=== PATIENT | male | born 1985 | race African-American/Black ===

== ENCOUNTER 2019-09-20 19:36 | Emergency (ER) | payer SELFPAY ==
[2019-09-20] MEDS ORDERED: ACETAMINOPHEN 500 MG TABLET (FP) PO ONE (19:47)
--- NOTE | 2019-09-20 19:47 | PDOC ---
Rapid Medical Evaluation Chief Complaint: Pain Time Seen by Provider: 09/20/19 19:45 Medical Evaluation: 09/20/19 19:45 I have performed a brief in-person evaluation of this patient. CC: left 5th toe pain s/p trauma to distal tip of toe on 09/18. Patient does not remember details as he was intoxicated at the time. PE: No focal findings. Orders: xray, ice, tylenol Patient will proceed to ED for further evaluation. Discharge Disposition - Diagnosis Toe pain, left - Referrals - Patient Instructions - Post Discharge Activity
[2019-09-20 19:57] VITALS: BP 122/77; PULSE 83; TEMP 98; BMI 23.7
[2019-09-20] MEDS ORDERED: ACETAMINOPHEN 325 MG TABLET (FP) ONE (20:05)
--- NOTE | 2019-09-20 20:32 | PDOC ---
History of Present Illness - General Chief Complaint: Pain Stated Complaint: LT FEET PAIN Time Seen by Provider: 09/20/19 19:45 History Source: Patient - History of Present Illness Initial Comments: 09/20/19 20:30 34-year-old male history of hypertension currently not on medication presents complaining of left fifth toe pain status post unknown type of injury last night while he was intoxicated. Denies any other injuries or complaints. ROS: As above PE: GENERAL: well-appearing, NAD HEAD: NCAT EYES: Pupils equal, round and reactive to light, sclera anicteric, conjunctiva clear ENT: pharynx: no erythema, no exudate, uvula midline NECK: supple CHEST: nontender RESP: clear, no w/r/r CARDIO: rrr, no m/g/r ABD: +BS, soft, nontender, non distended BACK: no midline spinal ttp, no CVAT EXTREMITIES: Normal range of motion, minimal swelling noted to left fifth toe, no bony tenderness to palpation, no warmth or erythema noted NEUROLOGICAL: Normal speech, normal gait SKIN: Warm, Dry Is this a multiple visit Asthma Patient?: No Past History - Medical History Allergies/Adverse Reactions: Allergies Allergy/AdvReac Type Severity Reaction Status Date / Time No Known Allergies Allergy Verified 09/20/19 19:47 COPD: No - Psycho-Social/Smoking History Smoking History: Current some day smoker Information on smoking cessation initiated: No - Substance Abuse Hx (Audit-C & DAST Scrn) How often the patient has a drink containing alcohol: Never Score: In Men: 4 or > Positive; In Women: 3 or > Positive: 0 Screen Result (Pos requires Nsg. Audit-10AR): Negative *Physical Exam - Vital Signs Last Vital Signs Temp Pulse Resp BP Pulse Ox 98 F 83 18 122/77 97 09/20/19 19:43 09/20/19 19:43 09/20/19 19:43 09/20/19 19:43 09/20/19 19:43 ED Treatment Course - Medications Given in the ED: ED Medications Discontinued Medications Generic Name Dose Route Start Last Admin Trade Name Freq PRN Reason Stop Dose Admin Acetaminophen 975 mg 09/20/19 19:47 09/20/19 20:13 Tylenol - PO 09/20/19 19:48 975 mg ONCE ONE Administration Medical Decision Making - Medical Decision Making 09/20/19 20:31 34-year-old male history of hypertension currently not on medication presents complaining of left fifth toe pain status post unknown type of injury last night while he was intoxicated. Denies any other injuries or complaints. Left toe x-ray negative for acute fracture (read by me) P.o. acetaminophen Advised patient to elevate, apply ice and alternate between acetaminophen and ibuprofen every 6 hours Return precautions discussed 09/20/19 20:32 Discharge - Discharge Information Problems reviewed: Yes Clinical Impression/Diagnosis: Toe pain, left Condition: Stable Disposition: HOME - Admission No - Follow up/Referral - Patient Discharge Instructions Additional Instructions: Alternate between acetaminophen and ibuprofen every 6 hours as needed for pain Return to ED if you develop fever, chills, redness, worsening pain and swelling - Post Discharge Activity
== END 2019-09-20 20:38 | disposition home or self-care (01) ==
LOC: JERFT 19:36 → JER 19:36 → JERFT 20:38
DX: M79.675 Pain in left toe(s) (principal)
CPT/HCPCS: 73660-TC-LT-FY; 99283-25